=== PATIENT | male | born 1970 | race Caucasian/White ===

== ENCOUNTER → 2022-06-09 17:20 | Outpatient (CLI) | payer OTHER, SELFPAY ==
--- NOTE | ~2022-06-09 | XR_ITS ---
EXAMINATION: XR chest 2V 06/09/2022 17:35 INDICATION: Shortness of breath PROCEDURE: 2 view chest COMPARISON: No prior studies for comparison. FINDINGS: The lungs are clear. The cardiomediastinal silhouette is within normal limits. There are no pleural effusions. There is no pneumothorax suspected. The lungs are hyperinflated which is consistent with, but not diagnostic of chronic obstructive pulmo nary disease. IMPRESSION: 1: NO ACUTE CARDIOPULMONARY DISEASE. Reviewed, dictated and finalized at location A.
== END ==
PROVIDERS: PCP Family Medicine; Visit Provider Family Medicine
DX: R06.02 Shortness of breath (principal)
CPT/HCPCS: 71046

== ENCOUNTER 2022-06-30 07:46 | Outpatient (CLI) | payer OTHER, SELFPAY ==
--- NOTE | 2022-06-30 07:50 | EST_ITS ---
Patient Info Name: Kota Godfrey Age: 52 years : 1970 Gender: Male Ht: 70 in Wt: 206 lbs BSA: 2.17 m2 HR: 61 bpm BP: 117 / 79 mmHg Heart Rhythm: Sinus Rhythm Exam Date: 06/30/2022 8:51 AM Exam Location: [facility] [place] Stress Patient Status: Outpatient Admit Date: 06/30/2022 Staff Ordering Physician: Brad Miller MD Attending Provider: Brad Miller MD Exercise Technologist: Yuly Ace CT Exercise Physician: Leonidas Parker DO Exam Type: CA stress test treadmill Study Info Indications R06.09 - Other forms of dyspnea A treadmill exercise stress test was performed. Summary 1. 1. Negative Guy exercise stress test for ischemic ST changes by ECG criteria. 2. 2. Reduced functional capacity, achieving 10 METs of workload. 3. 3. Appropriate HR response to exercise. 4. 4. Appropriate HR recovery at 1 minute post exercise. 5. 5. No imaging with stress testing. 6. 6. Patient informed of the above results. Protocol: Guy Stress ECG Details Stage: REST Duration (min): 0 min : 54 sec Speed (mph): 0.0 Grade (%): 0 HR (bpm): 60 SBP (mmHg): 117 DBP (mmHg): 79 METS: --- Stage: REST Duration (min): 8 min : 35 sec Speed (mph): 0.0 Grade (%): 0 HR (bpm): 63 SBP (mmHg): 117 DBP (mmHg): 79 METS: --- Stage: STAGE 1 Duration (min): 1 min : 0 sec Speed (mph): 1.7 Grade (%): 10 HR (bpm): 89 SBP (mmHg): 117 DBP (mmHg): 79 METS: --- Stage: STAGE 1 Duration (min): 2 min : 0 sec Speed (mph): 1.7 Grade (%): 10 HR (bpm): 99 SBP (mmHg): 117 DBP (mmHg): 79 METS: --- Stage: STAGE 1 Duration (min): 3 min : 0 sec Speed (mph): 1.7 Grade (%): 10 HR (bpm): 98 SBP (mmHg): 164 DBP (mmHg): 81 METS: --- Stage: STAGE 2 Duration (min): 1 min : 0 sec Speed (mph): 2.5 Grade (%): 12 HR (bpm): 112 SBP (mmHg): 164 DBP (mmHg): 81 METS: --- Stage: STAGE 2 Duration (min): 2 min : 0 sec Speed (mph): 2.5 Grade (%): 12 HR (bpm): 115 SBP (mmHg): 169 DBP (mmHg): 81 METS: --- Stage: STAGE 2 Duration (min): 3 min : 0 sec Speed (mph): 2.5 Grade (%): 12 HR (bpm): 122 SBP (mmHg): 169 DBP (mmHg): 81 METS: --- Stage: STAGE 3 Duration (min): 1 min : 0 sec Speed (mph): 3.4 Grade (%): 14 HR (bpm): 141 SBP (mmHg): 200 DBP (mmHg): 80 METS: --- Stage: STAGE 3 Duration (min): 2 min : 0 sec Speed (mph): 3.4 Grade (%): 14 HR (bpm): 147 SBP (mmHg): 200 DBP (mmHg): 80 METS: --- Stage: STAGE 3 Duration (min): 2 min : 0 sec Speed (mph): 3.4 Grade (%): 14 HR (bpm): 147 SBP (mmHg): 200 DBP (mmHg): 80 METS: --- Stage: RECOVERY Duration (min): 0 min : 59 sec Speed (mph): 0.0 Grade (%): 0 HR (bpm): 113 SBP (mmHg): 168 DBP (mmHg): 75 METS: ---
--- NOTE | 2022-06-30 07:50 | ECHO_ITS ---
Patient Info Name: Kota Godfrey Age: 52 years : 1970 Gender: Male Ht: 70 in Wt: 206 lbs BSA: 2.17 m2 HR: 61 bpm BP: 127 / 80 mmHg Technical Quality: Good Exam Date: 06/30/2022 8:09 AM Exam Location: [facility]monary Patient Status: Outpatient Admit Date: 06/30/2022 Staff Ordering Physician: Brad Miller MD Traffic Observer: Fatimah Baker RDCS Attending Provider: Brad Miller MD Referring Physician: Paul DUGGAN; Exam Type: CA echo doppler color flow Study Info Indications R07.89 - Other chest pain Complete two-dimensional, color flow and Doppler transthoracic echocardiogram is performed. Summary 1. Complete two-dimensional, color flow and Doppler transthoracic echocardiogram is performed. 2. Left ventricular chamber dimension is normal. 3. Left ventricular systolic function is normal, estimated at 55-60%. 4. The left ventricular diastolic function is normal. 5. E/e' 6 is not elevated. 6. Global longitudinal strain is normal at -18.2%. 7. Left atrial chamber dimension is mildly enlarged. 8. No pulmonary hypertension, estimated pulmonary arterial systolic pressure is 31 mmHg. Left Ventricle E/e' 6 is not elevated. Global longitudinal strain is normal at -18.2%. Left ventricular chamber dimension is normal. Left ventricular systolic function is normal, estimated at 55-60%. The left ventricular diastolic function is normal. Right Ventricle Right ventricular chamber dimension is normal. Right ventricular systolic function is normal. Left Atria Left atrial chamber dimension is mildly enlarged. Right Atria Right atrial chamber dimension is normal. Aortic Valve The aortic valve is trileaflet. There is no aortic valve stenosis. There is no aortic valve regurgitation. Pulmonic Valve There is no pulmonic regurgitation. Mitral Valve There is no mitral valve stenosis. There is no mitral valve regurgitation. Tricuspid Valve There is no tricuspid valve regurgitation. No pulmonary hypertension, estimated pulmonary arterial systolic pressure is 31 mmHg. Pericardium/Pleural There is no pericardial effusion. Inferior Vena Cava Normal inferior vena cava with >50% collapse upon inspiration consistent with normal right atrial pressure, 5 mmHg. Aorta The aortic root size at the sinus of Valsalva is normal. Left Ventricular Outflow Tract Name Value Normal LVOT 2D LVOT Diameter 2.0 cm LVOT Doppler LVOT Peak Gradient 4 mmHg LVOT Mean Gradient 2 mmHg LVOT VTI 19 cm LVOT VTI/AV VTI Ratio 0.8 LVOT Stroke Volume 61 ml LVOT CO 3.7 l/min LVOT CI 1.7 l/min/m2 Pulmonic Valve Name Value Normal RVOT Doppler
--- NOTE | 2022-06-30 13:25 | WPDPFTINT ---
PFT Procedure Performed PFT Procedure Performed Spirometry with Pre/Post Bronchodilator Plethysmography (Lung Vol) Diffusing Cap (DLCO) Flow Vol Loop PFT Interpretation This is a pulmonary function test with pre and post-bronchodilator spirometry, plethysmography and diffusing capacity. The test was performed and results interpreted in accordance with the 2019 and 2005 ATS/ERS Task Force guidelines respectively using the Global Lung Function Initiative-2012 reference equations. Patient demonstrated good effort and cooperation. Reproducibility criteria were met. The quality of the pre bronchodilator spirometry maneuver was Grade A and post bronchodilator spirometry maneuver was Grade A. Findings: Spirometry: The contour the inspiratory and expiratory flow tracing are normal. The pre bronchodilator FVC is 4.96 L, 99% predicted. The pre bronchodilator FEV1 is 3.48 L, 88% predicted. The pre bronchodilator FEV1: FVC ratio 70%. The post bronchodilator FVC is 5.15 L, representing a 4% increase. The post bronchodilator FEV1 is 3.77 L, representing an 8% increase. The post bronchodilator FEV1: FVC ratio 73%. Plethysmography: The total lung capacity is 7.49 L 1, 107% predicted. The functional residual capacity is 3.54 L, 100% predicted. The residual volume is 2.42 L, 118% predicted. Diffusing capacity: The diffusing capacity unadjusted for hemoglobin and carboxyhemoglobin is 25.9, 84% predicted. The diffusing capacity adjusted for alveolar volume is 3.67, 81% predicted. Impression: The spirometry is normal without evidence of an obstructive abnormality. There is no significant improvement after inhaling a single dose of albuterol. The lung volumes are normal. The diffusing capacity is normal. There are no prior studies for comparison
== END 2022-06-30 07:47 | disposition home or self-care (01) ==
LOC: ANHCARD 07:47
PROVIDERS: PCP Family Medicine; Visit Provider Family Medicine
DX: R06.02 Shortness of breath (principal); F17.209 Nicotine dependence, unspecified, with unspecified nicotine-induced disorders; R07.89 Other chest pain; R68.89 Other general symptoms and signs
CPT/HCPCS: 93017; 93306; 94060; 94726; 94729

== ENCOUNTER 2022-07-14 08:12 | Outpatient (CLI) | payer OTHER, SELFPAY ==
--- NOTE | 2022-07-29 17:46 | WPDHOMESLEEP ---
Sleep Study - Home Unattended Date of Study: 07/14/22 Ordering Provider: Brad Miller MD Interpreting Provider: Aleja Fallon MD Home Sleep Study Type: Watch PAT Height: 1.78 m Weight: 93.44 kg Body Mass Index: 29.5 Neck Circumference (inches): 15.5 [place]: 6 PMFSH Past Medical History Medical History (Updated 07/25/22 @ 18:17 by Brad Miller MD) Atypical chest pain (~05/2022) Normal exercise stress test 06/30/2022. Echo normal 06/30/2022 with ejection fraction 55-60%. Bilateral carpal tunnel syndrome (~05/2022) BMI 27.0-27.9,adult BPH without obstruction/lower urinary tract symptoms Chronic low back pain with left-sided sciatica Colon cancer screening Decreased exercise tolerance (~05/2022) Encounter for prostate cancer screening PSA 0.94 on 06/01/2021. PSA 1.28 on 06/02/2022. Encounter for wellness examination in adult Folic acid deficiency (06/01/21) level low at 4.3 on 06/01/2021. Normal at 12.4 on 09/07/2021. Folic acid 15.0 on 06/02/2022. Gastro-esophageal reflux disease without esophagitis Hypersomnia (~05/2022) Male erectile dysfunction, unspecified (~05/2022) Mixed hyperlipidemia (06/01/21) total cholesterol 141, HDL low at 34, triglycerides elevated at 185 with LDL normal at 79 on 06/01/2021. Total cholesterol 164, triglycerides 178, HDL 38, LDL 99 on 06/02/2022. cholesterol 164, HDL 38, triglycerides 178, LDL 99 on 06/02/2022. Mixed irritable bowel syndrome Overweight (BMI 25.0-29.9) Polycythemia (06/01/21) hemoglobin slightly elevated at 17.3 with WBC slightly elevated at 11.0 on 06/01/2021, smoker. Hemoglobin 16.3 with hematocrit 48.1 on 09/07/2021. Hemoglobin 17.9 with hematocrit 52.3 on 06/02/2022. Polyp of colon (07/21/22) 3 colon polyps on 1st colonoscopy, Tubular adenoma transverse colon 07/21/2022. Recurrent dislocation, left shoulder (~05/2021) no trauma Seasonal allergic rhinitis Shortness of breath (~05/2022) Chest x-ray 06/09/2022 with hyperinflation consistent with COPD. Pulmonary function study 06/30/2022 normal with no change with bronchodilator. Tobacco use disorder, continuous One pack per day Vitamin B12 deficiency anemia (06/01/21) level low at 262 with goal greater than 400 on 06/01/2021 . Level normal at 481 on 09/07/2021. Level normal at 811 with hemoglobin 17.9 on 06/02/2022. Family History Family History Father Malignant neoplasm of prostate Mother Hypertension Thyroid disorder Social History Social History Smoking packs per day: 1 Smoking cigarettes per day: 20.0 Years smoked: 30 Smoking pack-years: 30.00 Smoking status: Current every day smoker Tobacco type: cigarettes Alcohol intake: current Drinks per week: 5 Alcohol use details: beer Substance use: never Substance use type: does not use Lack of Transportation: No Lack of Food: Never True Current Housing: I Have Housing Concerned About Future Housing: No Difficulty Paying Gas/Electric Bills: No Difficulty Paying for Meds: No Currently Unemployed: No Education: Trade/Vocational Certificate Difficulty w/ Childcare or Family Care: No Living arrangements: with family Spiritual care concerns: No Medications Home Medications Medication Instructions Recorded Confirmed Type cyanocobalamin (vitamin B-12) 1,000 mcg PO DAILY 06/02/21 07/21/22 History 1,000 mcg tablet folic acid 1 mg tablet 1 mg PO DAILY #90 tabs 06/02/21 07/21/22 Rx sodium,potassium,mag sulfates 17.5 See Rx Instructions PO .COMPLEX 06/28/22 07/21/22 Rx gram-3.13 gram-1.6 gram oral soln #354 mL (Suprep Bowel Prep Kit) Sleep Procedure The sleep study was completed using [employer] a technically adequate device with seven channels: peripheral arterial tone, actigraphy, body position, snore, respiratory movement, pulse oximetry, sleep staging, and heart rate. Prior t
--- NOTE | 2022-08-08 21:06 | WPDHOMESLEEP ---
Sleep Study - Home Unattended Date of Study: 07/14/22 Ordering Provider: Brad Miller MD Interpreting Provider: Jaz Vincent, DO Home Sleep Study Type: Watch PAT Height: 1.78 m Weight: 93.44 kg Body Mass Index: 29.5 Neck Circumference (inches): 15.5 [place]: 6 Reason for Sleep Study Snoring, low energy Sleep History The patient is a 52 year old male with chronic low back pain, GERD, hyperlipidemia, erectile dysfunction, mixed irritable bowel syndrome, polycythemia, benign prostatic hyperplasia, seasonal allergies and current tobacco use that had a sleep study ordered by his primary care for evaluation of sleep apnea. The patient rarely awakens from sleep short of breath. He frequently snores and is occasionally loud enough that others complain. He constantly has trouble sleeping when he has a cold. He rarely wakes up gasping for air throughout the night. He denies having breathing problems at night observed by himself or others. He denies sweating excessively at night. He denies having heart palpitations or irregular heartbeats during the night. He denies falling asleep during the day and while driving. He denies sleep paralysis, cataplexy and hypnagogic / hypnopompic hallucinations. He denies having trouble at school or work due to sleepiness. He denies feeling afraid of going to sleep. He rarely has nightmares. He occasionally remembers his dreams. He occasionally has thoughts racing through his mind. He denies feeling sad or depressed. He occasionally has anxiety. He occasionally notices parts of his body jerk. He occasionally kicks during the night. He denies having crawling and aching feelings in his legs but occasionally has leg pain during the night. He rarely grinds his teeth during sleep but never awakens with morning jaw pain. He is frequently bothered by pain during the day and occasionally awakened by pain during the night. He constantly wakes up feeling stiff in the morning. He constantly wakes up with sore or achy muscles. He constantly wakes up with pain in the neck, spine or other joints. He goes to bed at 9:00 p.m. on weekdays and at 10:30 p.m. on weekends. It takes him 1-2 hours to fall asleep. He wakes up 1-2 times throughout the night to urinate or walk around his house to stretch out his back and legs. He is able to fall asleep within 5-10 minutes. He wakes up at 5:30 a.m. on weekdays and at 7:30 a.m. on weekends. He typically gets 6 hours of sleep per night. He does not stay in bed after waking up in the morning. He currently lives with his and dog. He does not consume any caffeinated beverages within 2 hours of bedtime. He does not engage in physical exercise before bedtime. He will watch television before falling asleep. He denies taking naps in the afternoon or the evening. He consumes 6 caffeinated beverages per day. He currently smokes 1 pack of cigarettes per day. He consumes 2-3 alcoholic beverages per week. He denies recreational drug use. [facility] Past Medical History Medical History Atypical chest pain (~05/2022) Normal exercise stress test 06/30/2022. Echo normal 06/30/2022 with ejection fraction 55-60%. Bilateral carpal tunnel syndrome (~05/2022) BMI 27.0-27.9,adult BPH without obstruction/lower urinary tract symptoms Chronic low back pain with left-sided sciatica Colon cancer screening Decreased exercise tolerance (~05/2022) Encounter for prostate cancer screening PSA 0.94 on 06/01/2021. PSA 1.28 on 06/02/2022. Encounter for wellness examination in adult Folic acid deficiency (06/01/21) level low at 4.3 on 06/01/2021. Normal at 12.4 on 09/07/2021. Folic acid 15.0 on 06/02/2022. Gastro-esophageal reflux disease without esophagitis Hypersomnia (~05/2022) Male erectile dysfunction, unspecified (~05/2022) Mixed hyperlipidemia (06/01/21) total cholesterol 141, HDL low at 34, triglycerides elevated at 185 wit
[2022-08-09 18:43] VITALS: BMI 29.5
== END 2022-07-15 10:07 | disposition home or self-care (01) ==
LOC: ANHCSM 08:13
PROVIDERS: PCP Family Medicine; Visit Provider Family Medicine
DX: G47.10 Hypersomnia, unspecified (principal); D75.1 Secondary polycythemia; R06.83 Snoring
CPT/HCPCS: 95800

== ENCOUNTER 2022-07-21 08:00 | Outpatient (NON) | payer OTHER, SELFPAY | END 2022-07-21 08:01 | disposition home or self-care (01) | PROVIDERS: PCP Family Medicine; Visit Provider Internal Medicine Gastroenterology | DX: Z12.11 Encounter for screening for malignant neoplasm of colon (principal); D12.5 Benign neoplasm of sigmoid colon | CPT/HCPCS: 88305 ==

== ENCOUNTER 2022-07-21 09:48 | Day surgery (SDC) | payer OTHER, SELFPAY ==
[2022-06-28 11:06] VITALS: BMI 27.8
[2022-07-06 10:13] VITALS: BMI 29.4
--- NOTE | 2022-07-21 09:32 | WPDANESEPP ---
Anes - Eval Pre Procedure Procedure: Operation Date: 07/21/22 12:30 Proposed Procedures p Screening Colonoscopy - Loki Muñoz MD Date/Time: 07/21/22 09:32 Surgeon: Toni Pre Op Diagnosis: Neoplasm Screening Patient Data Age: 52 Gender: M Height: 1.78 m Weight: 93 kg Allergies Allergy/AdvReac Type Severity Reaction Status Date / Time Penicillins Allergy Unknown Other Verified 07/06/22 10:13 Home Medications Medication Instructions Recorded Confirmed Type cyanocobalamin (vitamin B-12) 1,000 mcg PO DAILY 06/02/21 07/06/22 History 1,000 mcg tablet folic acid 1 mg tablet 1 mg PO DAILY #90 tabs 06/02/21 07/06/22 Rx sodium,potassium,mag sulfates 17.5 See Rx Instructions PO .COMPLEX 06/28/22 Rx gram-3.13 gram-1.6 gram oral soln #354 mL (Suprep Bowel Prep Kit) Patient hx anesthesia problems: none Family hx anesthesia problems: none Results Review: All pre-operative results and documents have been reviewed as part of the pre-operative evaluation. [facility] Past Medical History Medical History Atypical chest pain (~05/2022) Normal exercise stress test 06/30/2022. Echo normal 06/30/2022 with ejection fraction 55-60%. Bilateral carpal tunnel syndrome (~05/2022) BMI 27.0-27.9,adult BPH without obstruction/lower urinary tract symptoms Chronic low back pain with left-sided sciatica Colon cancer screening Decreased exercise tolerance (~05/2022) Encounter for prostate cancer screening PSA 0.94 on 06/01/2021. PSA 1.28 on 06/02/2022. Encounter for wellness examination in adult Folic acid deficiency (06/01/21) level low at 4.3 on 06/01/2021. Normal at 12.4 on 09/07/2021. Folic acid 15.0 on 06/02/2022. Gastro-esophageal reflux disease without esophagitis Hypersomnia (~05/2022) Male erectile dysfunction, unspecified (~05/2022) Mixed hyperlipidemia (06/01/21) total cholesterol 141, HDL low at 34, triglycerides elevated at 185 with LDL normal at 79 on 06/01/2021. Total cholesterol 164, triglycerides 178, HDL 38, LDL 99 on 06/02/2022. cholesterol 164, HDL 38, triglycerides 178, LDL 99 on 06/02/2022. Mixed irritable bowel syndrome Overweight (BMI 25.0-29.9) Polycythemia (06/01/21) hemoglobin slightly elevated at 17.3 with WBC slightly elevated at 11.0 on 06/01/2021, smoker. Hemoglobin 16.3 with hematocrit 48.1 on 09/07/2021. Hemoglobin 17.9 with hematocrit 52.3 on 06/02/2022. Recurrent dislocation, left shoulder (~05/2021) no trauma Seasonal allergic rhinitis Shortness of breath (~05/2022) Chest x-ray 06/09/2022 with hyperinflation consistent with COPD. Pulmonary function study 06/30/2022 normal with no change with bronchodilator. Tobacco use disorder, continuous One pack per day Vitamin B12 deficiency anemia (06/01/21) level low at 262 with goal greater than 400 on 06/01/2021 . Level normal at 481 on 09/07/2021. Level normal at 811 with hemoglobin 17.9 on 06/02/2022. Family History Family History Father Malignant neoplasm of prostate Mother Hypertension Thyroid disorder Social History Social History Smoking packs per day: 1 Smoking cigarettes per day: 20.0 Years smoked: 30 Smoking pack-years: 30.00 Smoking status: Current every day smoker Tobacco type: cigarettes Alcohol intake: current Drinks per week: 5 Alcohol use details: beer Substance use: never Substance use type: does not use Lack of Transportation: No Lack of Food: Never True Current Housing: I Have Housing Concerned About Future Housing: No Difficulty Paying Gas/Electric Bills: No Difficulty Paying for Meds: No Currently Unemployed: No Education: Trade/Vocational Certificate Difficulty w/ Childcare or Family Care: No Living arrangements: with family Spiritual care concerns: No Exam Day of Procedure 0
[2022-07-21 11:10] VITALS: BP 130/82; PULSE 80; RESP 20; TEMP 36.9; O2SAT 99
[2022-07-21] MEDS: LACTATED RINGERS 1,000 ML 150 ML IV CONT (11:21)
--- NOTE | 2022-07-21 11:30 | WPDANESEPPF ---
Anes - Initial Pre Proc Eval Procedure: Operation Date: 07/21/22 12:30 Proposed Procedures p Screening Colonoscopy - Loki Muñoz MD Date/Time: 07/21/22 11:30 Surgeon: Loki Muñoz MD Pre Op Diagnosis: Neoplasm Screening Patient Data Age: 52 Gender: M Height: 1.78 m Weight: 91.3 kg Last Vital Signs Temp 36.9 C 07/21/22 11:10 Pulse 80 07/21/22 11:10 Resp 20 07/21/22 11:10 BP 130/82 07/21/22 11:10 Pulse Ox 99 07/21/22 11:10 O2 Del Method Room Air 07/21/22 11:10 Allergies Allergy/AdvReac Type Severity Reaction Status Date / Time Penicillins Allergy Unknown Other Verified 07/21/22 11:12 Home Medications Medication Instructions Recorded Confirmed Type cyanocobalamin (vitamin B-12) 1,000 mcg PO DAILY 06/02/21 07/21/22 History 1,000 mcg tablet folic acid 1 mg tablet 1 mg PO DAILY #90 tabs 06/02/21 07/21/22 Rx sodium,potassium,mag sulfates 17.5 See Rx Instructions PO .COMPLEX 06/28/22 07/21/22 Rx gram-3.13 gram-1.6 gram oral soln #354 mL (Suprep Bowel Prep Kit) Patient hx anesthesia problems: none Family hx anesthesia problems: none Results Review: All pre-operative results and documents have been reviewed as part of the pre-operative evaluation. [facility] Past Medical History Medical History Atypical chest pain (~05/2022) Normal exercise stress test 06/30/2022. Echo normal 06/30/2022 with ejection fraction 55-60%. Bilateral carpal tunnel syndrome (~05/2022) BMI 27.0-27.9,adult BPH without obstruction/lower urinary tract symptoms Chronic low back pain with left-sided sciatica Colon cancer screening Decreased exercise tolerance (~05/2022) Encounter for prostate cancer screening PSA 0.94 on 06/01/2021. PSA 1.28 on 06/02/2022. Encounter for wellness examination in adult Folic acid deficiency (06/01/21) level low at 4.3 on 06/01/2021. Normal at 12.4 on 09/07/2021. Folic acid 15.0 on 06/02/2022. Gastro-esophageal reflux disease without esophagitis Hypersomnia (~05/2022) Male erectile dysfunction, unspecified (~05/2022) Mixed hyperlipidemia (06/01/21) total cholesterol 141, HDL low at 34, triglycerides elevated at 185 with LDL normal at 79 on 06/01/2021. Total cholesterol 164, triglycerides 178, HDL 38, LDL 99 on 06/02/2022. cholesterol 164, HDL 38, triglycerides 178, LDL 99 on 06/02/2022. Mixed irritable bowel syndrome Overweight (BMI 25.0-29.9) Polycythemia (06/01/21) hemoglobin slightly elevated at 17.3 with WBC slightly elevated at 11.0 on 06/01/2021, smoker. Hemoglobin 16.3 with hematocrit 48.1 on 09/07/2021. Hemoglobin 17.9 with hematocrit 52.3 on 06/02/2022. Recurrent dislocation, left shoulder (~05/2021) no trauma Seasonal allergic rhinitis Shortness of breath (~05/2022) Chest x-ray 06/09/2022 with hyperinflation consistent with COPD. Pulmonary function study 06/30/2022 normal with no change with bronchodilator. Tobacco use disorder, continuous One pack per day Vitamin B12 deficiency anemia (06/01/21) level low at 262 with goal greater than 400 on 06/01/2021 . Level normal at 481 on 09/07/2021. Level normal at 811 with hemoglobin 17.9 on 06/02/2022. Family History Family History Father Malignant neoplasm of prostate Mother Hypertension Thyroid disorder Social History Social History Smoking packs per day: 1 Smoking cigarettes per day: 20.0 Years smoked: 30 Smoking pack-years: 30.00 Smoking status: Current every day smoker Tobacco type: cigarettes Alcohol intake: current Drinks per week: 5 Alcohol use details: beer Substance use: never Substance use type: does not use Lack of Transportation: No Lack of Food: Never True Current Housing: I Have Housing Concerned About Future Housing: No Difficulty Paying Gas/Electric Bills: No Difficulty Paying for Med
--- NOTE | 2022-07-21 12:02 | PM.HPGS ---
History of Present Illness History of Present Illness Consent: Risks, benefits, and alternatives have been discussed and questions answered. Patient agrees to proceed with procedure. Chief complaint: Neoplasm Screening Narrative: Kota Godfrey is a 52 year old male Presents for screening colonoscopy. Patient's current weight appetite and bowel movements are normal. He denies abdominal pain. Patient has had no bleeding. Family history noncontributory. Patient presents today for neoplasia screening. Review of Systems Review of Systems: Review of systems noncontributory. [facility] Past Medical History Medical History Atypical chest pain (~05/2022) Normal exercise stress test 06/30/2022. Echo normal 06/30/2022 with ejection fraction 55-60%. Bilateral carpal tunnel syndrome (~05/2022) BMI 27.0-27.9,adult BPH without obstruction/lower urinary tract symptoms Chronic low back pain with left-sided sciatica Colon cancer screening Decreased exercise tolerance (~05/2022) Encounter for prostate cancer screening PSA 0.94 on 06/01/2021. PSA 1.28 on 06/02/2022. Encounter for wellness examination in adult Folic acid deficiency (06/01/21) level low at 4.3 on 06/01/2021. Normal at 12.4 on 09/07/2021. Folic acid 15.0 on 06/02/2022. Gastro-esophageal reflux disease without esophagitis Hypersomnia (~05/2022) Male erectile dysfunction, unspecified (~05/2022) Mixed hyperlipidemia (06/01/21) total cholesterol 141, HDL low at 34, triglycerides elevated at 185 with LDL normal at 79 on 06/01/2021. Total cholesterol 164, triglycerides 178, HDL 38, LDL 99 on 06/02/2022. cholesterol 164, HDL 38, triglycerides 178, LDL 99 on 06/02/2022. Mixed irritable bowel syndrome Overweight (BMI 25.0-29.9) Polycythemia (06/01/21) hemoglobin slightly elevated at 17.3 with WBC slightly elevated at 11.0 on 06/01/2021, smoker. Hemoglobin 16.3 with hematocrit 48.1 on 09/07/2021. Hemoglobin 17.9 with hematocrit 52.3 on 06/02/2022. Recurrent dislocation, left shoulder (~05/2021) no trauma Seasonal allergic rhinitis Shortness of breath (~05/2022) Chest x-ray 06/09/2022 with hyperinflation consistent with COPD. Pulmonary function study 06/30/2022 normal with no change with bronchodilator. Tobacco use disorder, continuous One pack per day Vitamin B12 deficiency anemia (06/01/21) level low at 262 with goal greater than 400 on 06/01/2021 . Level normal at 481 on 09/07/2021. Level normal at 811 with hemoglobin 17.9 on 06/02/2022. Family History Family History Father Malignant neoplasm of prostate Mother Hypertension Thyroid disorder Social History Social History Smoking packs per day: 1 Smoking cigarettes per day: 20.0 Years smoked: 30 Smoking pack-years: 30.00 Smoking status: Current every day smoker Tobacco type: cigarettes Alcohol intake: current Drinks per week: 5 Alcohol use details: beer Substance use: never Substance use type: does not use Lack of Transportation: No Lack of Food: Never True Current Housing: I Have Housing Concerned About Future Housing: No Difficulty Paying Gas/Electric Bills: No Difficulty Paying for Meds: No Currently Unemployed: No Education: Trade/Vocational Certificate Difficulty w/ Childcare or Family Care: No Living arrangements: with family Spiritual care concerns: No Meds Home Medications and Allergies Home Medications Medication Instructions Recorded Confirmed Type cyanocobalamin (vitamin B-12) 1,000 mcg PO DAILY 06/02/21 07/21/22 History 1,000 mcg tablet folic acid 1 mg tablet 1 mg PO DAILY #90 tabs 06/02/21 07/21/22 Rx sodium,potassium,mag sulfates 17.5 See Rx Instructions PO .COMPLEX 06/28/22 07/21/22 Rx gram-3.13 gram-1.6 gram oral soln #354 mL (Suprep Bowel Prep Kit) Allergies Aller
[2022-07-21 12:34] VITALS: BP 103/69; PULSE 83; RESP 16; O2SAT 92
[2022-07-21 12:44] VITALS: BP 110/64; PULSE 68; RESP 18; O2SAT 96
--- NOTE | 2022-07-21 12:45 | WPDANESPN ---
Anes - Prog Note Post-Op Date/Time: 07/21/22 12:45 Cardiovascular status: normal Respiratory status: normal Airway patency: baseline Mental status: baseline Post-Op hydration status: normal Vital Signs: Last Vital Signs Temp 36.9 C 07/21/22 11:10 Pulse 83 07/21/22 12:34 Resp 16 07/21/22 12:34 BP 103/69 07/21/22 12:34 Pulse Ox 92 07/21/22 12:34 O2 Del Method Room Air 07/21/22 12:34 Pain Score (VAS): 0/10 Patient Feedback: Patient satisfied with anesthetic care.
[2022-07-21 12:54] VITALS: BP 119/64; PULSE 65; RESP 18; O2SAT 98
== END 2022-07-21 13:05 | disposition home or self-care (01) ==
PROVIDERS: PCP Family Medicine; Visit Provider Internal Medicine Gastroenterology
PROC: 0DJD8ZZ Inspection of Lower Intestinal Tract, Via Natural or Artificial Opening Endoscopic (ICD-10-PCS; CPT 45378; principal; 2022-07-21 12:30)
DX: Z12.11 Encounter for screening for malignant neoplasm of colon (principal)
CPT/HCPCS: 45385